=== PATIENT | female | born 1970 | race Two or more races ===

== ENCOUNTER 2018-04-05 15:30 | Emergency (ER) | payer OTHER ==
[~2018-04-05] VITALS: Ht 167.6 cm; Wt 74.8 kg
[2018-04-05 15:35] VITALS: BP 156/77
[2018-04-05] MEDS ORDERED: DIPHTH,PERTUSS(ACELL),TET TOX 0.5 ML DISP.SYRIN. VAX IM ONE (15:45)
[2018-04-05] MEDS ORDERED: NEOMY/BACITR/POLYMYXIN OINT PACKET. TP ONE (15:45)
[2018-04-05] MEDS ORDERED: LIDOCAINE 1% PF 2 ML VIAL. INJ ONE (15:45)
--- NOTE | 2018-04-05 15:48 | PHYS DOC ---
Past Medical History Past Medical History: No Pertinent History Past Surgical History: Alcohol Use: None Drug Use: None Adult General Chief Complaint Chief Complaint: LACERATION/AVULSION HPI HPI Patient is a 47 year old female who presents to the emergency Department today with complaints of a laceration to the tip of her left thumb. Patient states she was using a box knife at work when she suddenly sliced her finger. She denies any numbness, or tingling. States that the area does burn. She denies any decreased range of motion. She is unsure when her last tetanus immunization was. Review of Systems Review of Systems Constitutional: Denies fever or chills [] Eyes: Denies change in visual acuity, redness, or eye pain [] Musculoskeletal: Denies recent range of motion, or joint pain [] Integument: Denies rash or skin lesions; reports laceration to distal aspect of left thumb [] Neurologic: Denies focal weakness or sensory changes [] All other systems were reviewed and found to be within normal limits, except as documented in this note. Current Medications Current Medications Current Medications Medications (Trade) Dose Ordered Sig/Jacob Start Time Stop Time Status Last Admin Dose Admin Diphtheria/ Tetanus/Acell Pertussis (Boostrix) 0.5 ml ONCE ONCE 04/05/18 15:45 04/05/18 15:47 DC 04/05/18 15:52 0.5 ML Lidocaine HCl (Xylocaine-Mpf 1% 2ml Vial) 4 ml 1X ONCE 04/05/18 15:45 04/05/18 15:47 DC 04/05/18 15:50 4 ML Neomycin/ Polymyxin/ Bacitracin (Triple Antibiotic Ointment) 1 pkt 1X ONCE 04/05/18 15:45 04/05/18 15:47 DC 04/05/18 15:52 1 PKT Allergies Allergies Allergies Coded Allergies Type Severity Reaction Last Updated Verified No Known Drug Allergies 04/05/18 No Physical Exam Physical Exam Constitutional: Well developed, well nourished, no acute distress, non-toxic appearance. [] HENT: Normocephalic, atraumatic, bilateral external ears normal, nose normal. [ ] Eyes: PERRLA, conjunctiva normal, no discharge. [] Skin: Warm, dry, no erythema, no rash; 2 cm laceration distal to the DIP palmar aspect of left thumb. [] Extremities: No cyanosis, no clubbing, ROM intact, no edema [] Neurologic: Alert and oriented X 3, normal motor function, normal sensory function, no focal deficits noted. [] Psychologic: Affect normal, judgement normal, mood normal. [] Current Patient Data Vital Signs Vital Signs Date Time Temp Pulse Resp B/P (MAP) Pulse Ox O2 Delivery O2 Flow Rate FiO2 04/05/18 15:35 98.6 70 16 156/77 (103) 100 Room Air 98.6 EKG EKG [] Radiology/Procedures Radiology/Procedures Laceration Repair by me: Anesthesia: 1% lidocaine locally 4 ml Location: L thumb Tendon/Joint/Nerves: No injury Foreign body: None detected after copious irrigation and exploration Technique: 7 Simple Interrupted Sutures with 5-0 ethilon Complexity: No subcutaneous sutures/mucosal repair/edge excision Post Closure Length: 2 cm Patient's bleeding was easily controlled in the department and there is no indication of anemia. No evidence of compartment syndrome, neurologic injury, vascular injury, open joint, tendon laceration, or foreign body. Patient is appropriate for outpatient follow up. 48 hour wound check. Scar minimization instructions given.[] Course & Med Decision Making Course & Med Decision Making Pertinent Labs and Imaging studies reviewed. (See chart for details) Dx: L thumb laceration Laceration repair as documented above. She was given a DTaP immunization. A Dressing and aluminum finger splint were applied by the nurse. Patient was instructed to return to the ER or follow up with her doctor in 10 days to have the sutures removed. Apply antibiotic ointment twice daily and a new bandage, keep the area clean and dry. May take Tylenol and ibuprofen as needed for pain.Patient verbalized an understanding of home care, medications, follow-up, and return to ED instructions and was in agreement with the plan of care. [] Dragon Disclaimer Dragon Disclaimer This electronic medical record was generated, in whole or in part, using a voice recognition dictation system. Departure Departure Impression: Primary Impression: Laceration of left thumb without foreign body without damage to nail Disposition: HOME, SELF-CARE Condition: STABLE Referrals: NO PCP (PCP) Patient Instructions: Laceration Care, Adult, [id number] Additional Instructions: Return to the ER or follow up with her doctor in 10 days to have the sutures removed. Apply antibiotic ointment twice daily and a new bandage, keep the area clean and dry. May take Tylenol and ibuprofen as needed for pain. Problem Qualifiers Primary Impression: Laceration of left thumb without foreign body without damage to nail Encounter type: initial encounter Qualified Codes: S61.012A - Laceration without foreign body of left thumb without damage to nail, initial encounter ALEJANDRA WARREN APRN Apr 05, 2018 15:48
== END 2018-04-05 16:25 | disposition home or self-care (01) ==
LOC: ER 15:30
DX: S61.012A Laceration without foreign body of left thumb without damage to nail, initial encounter (principal); W26.0XXA Contact with knife, initial encounter; Y93.89 Activity, other specified; Y92.89 Other specified places as the place of occurrence of the external cause; Y99.8 Other external cause status
CPT/HCPCS: 12001; 90471; 90715; 99283

== ENCOUNTER 2018-05-18 12:45 | Emergency (ER) | payer OTHER ==
[~2018-05-18] VITALS: Ht 167.6 cm; Wt 74.8 kg
[2018-05-18 13:13] VITALS: BP 153/70
--- NOTE | 2018-05-18 13:53 | PHYS DOC ---
Past Medical History Past Medical History: No Pertinent History Past Surgical History: Alcohol Use: None Drug Use: None Adult General Chief Complaint Chief Complaint: SUTURE/STAPLE REMOVAL HPI HPI Patient is a 47 year old female who presents to the emergency department for removal of sutures. Patient states that she was here in the emergency room on April 05, 2018 to have her thumb sutured after she cut it at work. She states she didn't come back in 10 days after the sutures were placed as instructed to because she was afraid it would hurt when they took the sutures out. Patient states that one of the 7 sutures came out on its own she denies any warmth, redness, drainage, or pain at the site. Review of Systems Review of Systems Constitutional: Denies fever or chills [] Integument: See history of present illness Neurologic: Denies headache, focal weakness or sensory changes [] All other systems were reviewed and found to be within normal limits, except as documented in this note. Allergies Allergies Allergies Coded Allergies Type Severity Reaction Last Updated Verified No Known Drug Allergies 04/05/18 No Physical Exam Physical Exam Constitutional: Well developed, well nourished, no acute distress, non-toxic appearance. [] HENT: Normocephalic, atraumatic, bilateral external ears normal, nose normal. [] Eyes: PERRLA, conjunctiva normal, no discharge. [] Lungs & Thorax: Regular even respirations no distress noted Skin: Warm, dry, no erythema, no rash; 6 sutures present and distal aspect of left thumb no drainage, erythema, or warmth noted. [] Extremities: No tenderness, no cyanosis, no clubbing, ROM intact, no edema. [] Neurologic: Alert and oriented X 3, normal motor function, normal sensory function, no focal deficits noted. [] Psychologic: Affect normal, judgement normal, mood normal. [] Current Patient Data Vital Signs Vital Signs Date Time Temp Pulse Resp B/P (MAP) Pulse Ox O2 Delivery O2 Flow Rate FiO2 05/18/18 13:13 97.8 60 60 153/70 (97) 100 Room Air 97.8 EKG EKG [] Radiology/Procedures Radiology/Procedures [] Course & Med Decision Making Course & Med Decision Making Pertinent Labs and Imaging studies reviewed. (See chart for details) dx: Suture removal 6 sutures were removed from the previous laceration site. The edges were well approximated with no drainage or dehiscence. Patient was instructed to apply antibiotic ointment on the dermal cream to the area to help to reduce scarring. Follow-up with primary care doctor as needed. Return to the emergency room if symptoms worsen. Patient verbalized an understanding of home care, medications, follow-up, and return to ED instructions and was in agreement with the plan of care. [] Dragon Disclaimer Dragon Disclaimer This electronic medical record was generated, in whole or in part, using a voice recognition dictation system. Departure Departure Impression: Primary Impression: Encounter for removal of sutures Disposition: HOME, SELF-CARE Condition: STABLE Referrals: NO PCP (PCP) Patient Instructions: Suture Removal-Brief Additional Instructions: You may apply antibiotic ointment or Mederma cream to help reduce scarring. Follow-up with your primary care doctor as needed. Return to the emergency room if her symptoms worsen. ALEJANDRA WARREN APRN May 18, 2018 13:53
== END 2018-05-18 14:03 | disposition home or self-care (01) ==
LOC: ER 12:45
DX: S61.012D Laceration without foreign body of left thumb without damage to nail, subsequent encounter (principal); X58.XXXD Exposure to other specified factors, subsequent encounter
CPT/HCPCS: 99281